=== PATIENT | female | born 1990 | race Two or more races ===

== ENCOUNTER 2020-09-01 10:30 | Emergency (ER) | payer MEDICAID, OTHER ==
[~2020-09-01] VITALS: Ht 160 cm; Wt 69.7 kg
--- NOTE | 2020-09-01 11:08 | NUR ---
ASSUMED CARE OF PT. MIGRAINE STARTED LAST NIGHT, "THIS IS ONE OF THE WORST ONES BREONNA HAD" N WITH DRY HEAVING. SENSITIVITY TO LIGHT, PRIMARILY ON RIGHT SIDE. MIGRAINE STARTED ON RIGHT SIDE. TOOK TWO IBUPFOREN THIS MORNING AT 0730, BUT IT IS NOT HELPING.
[2020-09-01] MEDS ORDERED: SERT50TA PO (11:14)
[2020-09-01] MEDS ORDERED: ALPR0.25 PO (11:14)
--- NOTE | 2020-09-01 11:40 | NUR ---
PT HAD EMESIS, 100 ML
[2020-09-01] MEDS ORDERED: METOCLOPRAMIDE 5 MG/ML, 2ML IVPush ONE (12:00)
[2020-09-01] MEDS ORDERED: DIPHENHYDRAMINE 50 MG/ML, 1ML IVPush ONE (12:00)
[2020-09-01] MEDS ORDERED: SODIUM CHLORIDE 0.9% 1,000ML IVBOLUS ONE (12:00)
[2020-09-01] MEDS ORDERED: KETOROLAC 30 MG/1 ML IVPush ONE (12:00)
[2020-09-01] MEDS ORDERED: SODIUM CHLORIDE FLUSH 10ML SYR IVF ONE (12:00)
[2020-09-01] MEDS ORDERED: DIPHENHYDRAMINE 50 MG/ML, 1ML ONE (12:05)
[2020-09-01] MEDS ORDERED: METOCLOPRAMIDE 5 MG/ML, 2ML ONE (12:06)
[2020-09-01] MEDS ORDERED: KETOROLAC 30 MG/1 ML ONE (12:06)
--- NOTE | 2020-09-01 12:11 | NUR ---
PT MEDICATED PER MAR.
[2020-09-01 13:28] VITALS: BP 134/75
== END 2020-09-01 14:26 | disposition home or self-care (01) ==
LOC: ED 14:15
DX: G43.009 Migraine without aura, not intractable, without status migrainosus (principal); R11.2 Nausea with vomiting, unspecified
CPT/HCPCS: 96361; 96374; 96375; 99284; J1200; J1885; J2765; J7030

== ENCOUNTER 2021-01-23 20:26 | Observation (INO) | payer MEDICAID ==
[~2021-01-23] VITALS: Ht 172.7 cm; Wt 70.5 kg
[~2021-01-23 20:26] MED LIST: ALPR0.25 PO; SERT50TA PO
[2021-01-23 21:00] LABS: BASOPHILS % (AUTO) 0 % (0-1); EOSINOPHILS % (AUTO) 1 % (1-7); LYMPHOCYTES % (AUTO) 14 % (22-44); MEAN CORPUSCULAR HEMOGLOBIN 31.9 pg (27.0-34.8); MEAN CORPUSCULAR HGB CONC 33.9 g/dL (32.4-35.8); MEAN PLATELET VOLUME 8.1 fL (7.4-10.4); MONOCYTES % (AUTO) 3 % (2-9); NEUTROPHILS % (AUTO) 81 % (42-75); PLATELET COUNT 251 x10^3/uL (130-400); RED BLOOD COUNT 4.63 x10^6/uL (3.82-5.3); RED CELL DISTRIBUTION WIDTH 12.9 % (9.6-15.2)
[2021-01-23 21:07] LABS: ALANINE AMINOTRANSFERASE 40 U/L (12-78); ALBUMIN 2.9 g/dL (3.4-5.0); ANION GAP 6 mmol/L (5-15); CALCIUM 7.9 mg/dL (8.5-10.1); CHLORIDE 112 mmol/L (98-107)
[2021-01-23 21:10] LABS: ALKALINE PHOSPHATASE 55 U/L (45-117); BILIRUBIN,TOTAL 0.3 mg/dL (0.2-1.0); CREATININE 0.76 mg/dL (0.55-1.02); TOTAL PROTEIN 6.1 g/dL (6.4-8.2)
--- NOTE | 2021-01-23 21:10 | NUR ---
ROOM SECURED. BELONGINGS SECURED AND ACCOUNTED FOR. PATIENT SITTING IN BED COMFORTABLY ON MONITOR. BLANKETS PROVIDED FOR COMFORT
[2021-01-23 21:12] LABS: SALICYLATE LEVEL < 1.7 mg/dL (2.8-20.0)
[2021-01-23] MEDS ORDERED: LIDOCAINE-MPF 1%, 5ML ONE (21:21)
[2021-01-23] MEDS ORDERED: LIDOCAINE-MPF 1%, 5ML INFIL ONE (21:30)
[2021-01-23 22:13] LABS: AMPHETAMINE SCREEN, URINE Negative (Negative); BARBITURATE SCREEN, URINE Negative (Negative); BENZODIAZEPINE SCREEN, URINE Negative (Negative); CANNABINOID SCREEN, URINE Positive (Negative); COCAINE SCREEN, URINE Negative (Negative); METHADONE SCREEN, URINE Negative (Negative); OPIATE SCREEN, URINE Negative (Negative)
--- NOTE | 2021-01-23 22:24 | NUR ---
PATIENT SITTING IN BED COMFORTABLY ON MONITOR. BLANKETS PROVIDED FOR COMFORT. PATIENT IN NO DISTRESS
--- NOTE | 2021-01-23 23:15 | NUR ---
PATIENT SITTING IN BED COMFORTABLY ON MONITOR. BLANKETS PROVIDED FOR COMFORT. PATIENT IN NO DISTRESS
--- NOTE | 2021-01-23 23:31 | NUR ---
PACKET FAXED TO [facility] AND [facility] AT THIS TIME
--- NOTE | 2021-01-23 23:51 | NUR ---
[facility] ACCEPTING AT [facility], ACCEPTING PROVIDER KENAN MCDONALD
--- NOTE | 2021-01-24 00:18 | NUR ---
richa condon took report at [facility]
--- NOTE | 2021-01-24 00:37 | NUR ---
PATIENT SITTING IN BED COMFORTABLY ON MONITOR. BLANKETS PROVIDED FOR COMFORT. PATIENT IN NO DISTRESS
--- NOTE | 2021-01-24 01:08 | NUR ---
PATIENT SITTING IN BED COMFORTABLY ON MONITOR. NO DISTRESS AT THIS TIME
--- NOTE | 2021-01-24 02:07 | NUR ---
PATIENT SITTING IN BED COMFORTABLY ON MONITOR. NO DISTRESS AT THIS TIME
--- NOTE | 2021-01-24 03:14 | NUR ---
PATIENT SITTING IN BED COMFORTABLY ON MONITOR. NO DISTRESS AT THIS TIME
--- NOTE | 2021-01-24 04:21 | NUR ---
PATIENT SITTING IN BED COMFORTABLY ON MONITOR. NO DISTRESS AT THIS TIME
--- NOTE | 2021-01-24 05:31 | NUR ---
PATIENT SITTING IN BED COMFORTABLY ON MONITOR. NO DISTRESS AT THIS FRITZ Addendum: 01/24/21 at 0614 by [email or web address] TIME
--- NOTE | 2021-01-24 06:54 | NUR ---
report taken from AUNG Salazar, this RN assuming care at this time.
[2021-01-24 07:15] VITALS: BP 125/81
--- NOTE | 2021-01-24 07:16 | NUR ---
PT UP TO BATHROOM TO VOID, GAIT STEADY. PT BACK IN BED, REATTACHED TO ALL MONITORS. PT IS A&O, RESPS EVEN AND UNLABORED, DENIES PAIN. PT DENIES SI. STATES THAT OVERDOSE WAS A MOMENT OF "FEELING TIRED AND WANTING TO SLEEP." PT DENIES ANY SYMPTOMS AT THIS TIME. SITTER MONITORING FROM HALLWAY, ROOM SECURE.
--- NOTE | 2021-01-24 08:26 | NUR ---
report given to [facility] by previous RN, pt taken to [facility] at approx 0815 this am, dean at transport.
== END 2021-01-24 08:28 ==
LOC: ED 21:49 → EDIP 23:03
PROVIDERS: ADMIT Emergency Medicine; ATTEND Emergency Medicine
DX: T43.592A Poisoning by other antipsychotics and neuroleptics, intentional self-harm, initial encounter (principal); S01.111A Laceration without foreign body of right eyelid and periocular area, initial encounter; G43.909 Migraine, unspecified, not intractable, without status migrainosus; W22.8XXA Striking against or struck by other objects, initial encounter; Y93.89 Activity, other specified; Y92.009 Unspecified place in unspecified non-institutional (private) residence as the place of occurrence of the external cause; Z79.899 Other long term (current) drug therapy
CPT/HCPCS: 12013; 36415; 80053; 80299; 80307; 80320; 80329; 85025; 93005; 99284; G0378; G0480